=== PATIENT | female | born 1995 | race Two or more races ===

== ENCOUNTER 2017-04-11 02:39 | Observation (INO) | payer OTHER ==
[2017-04-11 02:53] VITALS: RESP 16; TEMP 98.7; O2SAT 98
--- NOTE | 2017-04-11 03:21 | ED PDOC ---
HPI: Psych/Substance Abuse Time Seen by Provider: 04/11/17 02:53 Chief Complaint (Nursing): Alcohol Ingestion Chief Complaint (Provider): Alcohol Ingestion ED Caveat: Intoxicated History Per: Patient History/Exam Limitations: intoxication Onset/Duration Of Symptoms: Unknown Current Symptoms Are (Timing): Still Present Modifying Factor(s): Alcohol Severity: Moderate Additional Complaint(s): 21 year old female is brought into the ED for alcohol ingestion. Unable to obtain HPI due to patient's ED caveat (intoxication). Patient is actively vomiting and retching. Past Medical History Reviewed: Unable To Obtain (due to intoxication) Vital Signs: Last Vital Signs Temp 98.7 F 04/11/17 02:50 Pulse 78 04/11/17 02:50 Resp 16 04/11/17 02:50 BP 130/90 04/11/17 02:50 Pulse Ox 98 04/11/17 02:50 - Family History Family History: States: Unknown Family Hx - Allergies Allergies/Adverse Reactions: Allergies Allergy/AdvReac Type Severity Reaction Status Date / Time No Known Allergies Allergy Verified 04/11/17 02:50 Review of Systems Review Of Systems: ROS cannot be obtained secondary to pt's inabilty to answer questions. (due to intoxication) Physical Exam - Reviewed Nursing Documentation Reviewed: Yes Vital Signs Reviewed: Yes - Physical Exam Appears: Positive for: Non-toxic, No Acute Distress. Negative for: Well ( intoxicated, smells of alcohol. Patient is actively vomiting and retching.) Head Exam: Positive for: ATRAUMATIC, NORMOCEPHALIC Skin: Positive for: Normal Color, Warm, Dry Cardiovascular/Chest: Positive for: Regular Rate, Rhythm Respiratory: Positive for: Normal Breath Sounds. Negative for: Respiratory Distress Neurologic/Psych: Positive for: Alert - ECG O2 Sat by Pulse Oximetry: 98 (RA) Pulse Ox Interpretation: Normal Medical Decision Making Medical Decision Makin:53 Initial impression: 21 year old female is intoxicated. Initial plan: * alcohol serum * zofran 4mg IM * accucheck * reevaluation 2:54 Patient is being placed into ED observation pending clinical sobriety. See ED obs note for further updates. 7:00 Patient is signed out by me to Jose Vazquez MD pending sobriety, reevaluation, and final disposition. Scribe Attestation: Documented by Mercedes Hernandez, acting as a scribe for Byron Benitez MD. Provider Scribe Attestation: All medical record entries made by the Scribe were at my direction and personally dictated by me. I have reviewed the chart and agree that the record accurately reflects my personal performance of the history, physical exam, medical decision making, and the department course for this patient. I have also personally directed, reviewed, and agree with the discharge instructions and disposition. ED OBSERVATION Date of observation admission: 04/11/17 Time of observation admission: 02:54 - Observation admission statement Patient is being placed in observation because:: Need for resolution of acute symptoms. - Goals of Observation Goals of observation are:: clinical sobriety. Disposition - Clinical Impression Clinical Impression: Alcohol abuse - Patient ED Disposition Is Patient to be Admitted: Transfer of Care - Disposition Disposition: Transfer of Care Disposition Time: 07:00 Condition: STABLE Patient Signed Over To: Jose Vazquez Handoff Comments: pending sobriety
[2017-04-11 07:00] VITALS: BP 129/65; PULSE 79
--- NOTE | 2017-04-11 07:57 | ED PDOC ---
- ECG O2 Sat by Pulse Oximetry: 98 (RA) Medical Decision Making Medical Decision Makin:00 patient signed out to me by Dr. Benitez. pending labs. 7;50 patient denies symptoms. a friend is here with her. patient shows no signs of clinical intoxication. Denies suicidal ideation, homicidal ideation, or hallucinations. Scribe Attestation Documented by Thelma Resendiz acting as a scribe for Jose Vazquez MD Provider Attestation: All medical record entries made by the Scribe were at my direction and personally dictated by me. I have reviewed the chart and agree that the record accurately reflects my personal performance of the history, physical exam, medical decision making, and the department course for this patient. I have also personally directed, reviewed, and agree with the discharge instructions and disposition. Disposition Counseled Patient/Family Regarding: Studies Performed, Diagnosis - Clinical Impression Clinical Impression: Alcohol abuse - POA Present On Arrival: None - Disposition Disposition: Routine/Home Disposition Time: 07:50 Condition: GOOD
== END 2017-04-11 08:03 | disposition home or self-care (01) ==
LOC: H.ER 02:39 → H.EROBSV 02:54
PROVIDERS: ADMIT Emergency Medicine; ATTEND Emergency Medicine
DX: F10.129 Alcohol abuse with intoxication, unspecified (principal); Y90.8 Blood alcohol level of 240 mg/100 ml or more